=== PATIENT | male | born 1955 | race Caucasian/White ===

== ENCOUNTER 2019-10-19 10:36 | Emergency (ER) | payer OTHER ==
[~2019-10-19 10:36] MED LIST: ATROPINE SULFATE INJ 1 MG/10 ML DISP.SYRIN IV ONE; CALCIUM GLUCONATE 1000 MG/10 ML INJ IV ONE; EPINEPHRINE INJ 1 MG/10 ML DISP.SYRIN ONE; NOREPINEPHRINE BITARTRATE INJ/PF 4 MG/4 ML SDV IV ONE; SODIUM BICARBONATE 8.4% INJ 50 MEQ/50 ML DISP.SYRIN ONE
[2019-10-19] MEDS ORDERED: MIDAZOLAM HCL 50 MG/100 ML RTUINJ IV PRN (10:42)
[2019-10-19] MEDS ORDERED: VECURONIUM BROMIDE INJ 10 MG VIAL IV ONE ×4 (10:43→12:12)
[2019-10-19] MEDS ORDERED: NALOXONE HCL INJ 2 MG/2 ML DISP.SYRIN ONE (10:44)
[2019-10-19] MEDS ORDERED: KETAMINE HCL INJ 500 MG/10 ML VIAL ONE (10:54)
[2019-10-19 11:11] LABS: PARTIAL THROMBOPLASTIN TIME 43.9 SEC (23.5-35.8); PROTHROMBIN TIME 15.3 SEC (11.4-15.4)
[2019-10-19 11:16] LABS: HEMATOCRIT 47.2 % (37.9-51.0); HEMOGLOBIN 14.3 g/dL (13.5-17.0); MEAN CORPUSCULAR HEMOGLOBIN 30.1 pg (27.0-33.4); MEAN CORPUSCULAR HGB CONC 30.4 g/dL (32.0-36.0); MEAN CORPUSCULAR VOLUME 99 fl (80-97); PLATELET COUNT 155 10^3/uL (150-450); RED BLOOD COUNT 4.76 10^6/uL (4.35-5.55); RED CELL DISTRIBUTION WIDTH 15.6 % (11.5-14.0); WHITE BLOOD COUNT 12.3 10^3/uL (4.0-10.5)
[2019-10-19 11:25] LABS: VENOUS BLOOD BASE EXCESS -21.1 mmol/L; VENOUS BLOOD HCO3 16.8 mmol/L (20-32)
[2019-10-19] MEDS ORDERED: INSULIN REG, HUMAN 100 UNIT/ML 3 ML VIAL (PYX) ONE (11:31)
[2019-10-19 11:32] LABS: ALBUMIN 3.6 g/dL (3.5-5.0); ALKALINE PHOSPHATASE 79 U/L (38-126); ASPARTATE AMINO TRANSFERASE 179 U/L (17-59); BILIRUBIN,DIRECT 0.1 mg/dL (0.0-0.4); BILIRUBIN,TOTAL 0.6 mg/dL (0.2-1.3); BLOOD UREA NITROGEN 17 mg/dL (7-20); CALCIUM 9.3 mg/dL (8.4-10.2); POTASSIUM 3.9 mmol/L (3.6-5.0); TOTAL PROTEIN 6.3 g/dL (6.3-8.2)
[2019-10-19 11:33] LABS: VENOUS BLOOD PCO2 122.3 mmHg (35-63); VENOUS BLOOD PH 6.76 (7.30-7.42)
[2019-10-19] MEDS ORDERED: EPINEPHRINE INJ/PF 1 MG/1 ML AMPULE ONE ×3 (11:35→12:47)
[2019-10-19 11:37] LABS: CARBON DIOXIDE 16 mmol/L (22-30); CHLORIDE 99 mmol/L (98-107)
[2019-10-19 11:44] LABS: ANION GAP 25 (5-19); TROPONIN I 0.015 ng/mL
[2019-10-19 11:45] LABS: GLUCOSE 415 mg/dL (75-110)
[2019-10-19 11:46] LABS: ABSOLUTE LYMPHOCYTES# (MANUAL) 7.5 10^3/uL (0.5-4.7); ABSOLUTE MONOCYTES # (MANUAL) 0.7 10^3/uL (0.1-1.4); ANISOCYTOSIS 1+; BAND NEUTROPHILS % (MANUAL) 2 % (3-5); BASOPHILS % (MANUAL) 0 % (0-2); EOSINOPHILS % (MANUAL) 2 % (0-6); LYMPHOCYTES % (MANUAL) 57 % (13-45); MONOCYTES % (MANUAL) 6 % (3-13); SEGMENTED NEUTROPHILS % (MAN) 29 % (42-78); TOTAL CELLS COUNTED 100
[2019-10-19 11:47] LABS: PLATELET COMMENT ADEQUATE
[2019-10-19 12:12] LABS: ARTERIAL BLOOD H2CO3 2.62 mmol/L (1.05-1.35); ARTERIAL BLOOD PO2 99.1 mmHg (80-100); ARTERIAL BLOOD TOTAL CO2 17.7 mmol/L (23-27)
[2019-10-19] MEDS ORDERED: ETOMIDATE INJ/PF 20 MG/10 ML SDV IV ONE ×2 (12:12→12:13)
--- NOTE | 2019-10-19 12:12 | ER Document Report ---
ED General - General Chief Complaint: Cardiac Arrest Stated Complaint: POST CARDIAC Time Seen by Provider: 10/19/19 10:36 Primary Care Provider: KENDELL GRANADO DPM [ACTIVE STAFF] - Follow up as needed Information source: Relative, Emergency Med Personnel Cannot obtain history due to: Intubated Notes: 64-year-old male brought in by EMS for a witnessed arrest at home. Patient apparently got up in the morning and told his mother that he felt like he needed some sugar so she brought him a glass of sweet tea with extra sugar mixed in. Patient was then drinking the sweet tea but then fell to the ground. Mother had already called 911 and the fire department showed up on scene very shortly after he fell to the ground. Fire department found the patient to be apneic and pulseless. They commenced CPR, they did CPR for 5 to 10 minutes and then EMS arrived on the scene, EMS gave 2 mg of epinephrine and obtained return of spontaneous circulation with some spontaneous breathing. They did intubate the patient with the I-gel. They checked a blood glucose and it was "normal". Mother denies any symptoms prior to this morning. TRAVEL OUTSIDE OF THE [place] IN LAST 30 DAYS: No - Related Data Allergies/Adverse Reactions: codeine [Codeine] Allergy (Verified 12/31/14 14:31) Past Medical History - General Information source: Relative, Emergency Med Personnel, [facility] Records Cannot obtain history due to: Intubated - Social History Smoking Status: Current Every Day Smoker Drug Abuse: None Lives with: Parents Family History: CAD - Past Medical History Cardiac Medical History: Reports: Hx Hypertension Denies: Hx Heart Attack Pulmonary Medical History: Denies: Hx Asthma Neurological Medical History: Reports: Hx Cerebrovascular Accident - 10 years ago. Denies: Hx Seizures GI Medical History: Denies: Hx Hepatitis, Hx Hiatal Hernia, Hx Ulcer Infectious Medical History: Denies: Hx Hepatitis Past Surgical History: Denies: Hx Open Heart Surgery, Hx Pacemaker Review of Systems - Review of Systems -: Yes ROS unobtainable due to patient's medical condition Physical Exam - Vital signs Vitals: Resp 18 10/19/19 10:55 - Notes Notes: GENERAL: On arrival patient was intubated, had not received any sedating medication by EMS, was initiating spontaneous respirations but otherwise not moving. HEAD: Normocephalic, atraumatic EYES: Pupils equal, round pinpoint, do not respond to light. ENT: Oral mucosa moist, tongue midline. NECK: Full range of motion, supple, trachea midline. LUNGS: Clear to auscultation bilaterally, initiating own breaths, assisted with bag, not gagging. HEART: Regular rate and rhythm, no murmurs, gallops, rubs. ABDOMEN: Soft, nondistended, bowel sounds absent. 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 No edema, radial and dorsalis pedis pulses 1/4 bilaterally. Slight peripheral cyanosis. NEUROLOGICAL: Unresponsive, GCS 3 T, no corneal reflex, is initiating own b reaths, biceps and patellar DTRs absent bilaterally. SKIN: Initially warm, no abscesses noted, initially no mottling. Patient did become mottled later during ED course. Course - Re-evaluation Re-evalutation: 10/19/19 12:35 Given the multiples times that the patient has gone back into asystolic arrest and the escalating dosage of epinephrine through the drip that we have to use on this patient family has decided to make the patient a DNR particularly considering his severe metabolic acidosis. Patient will be maintained on cur rent supportive care and if he arrests again we will not perform CPR. Preacher has been called. 10/19/19 20:37 This is a late entry. On arrival patient was breathing on his own but otherwise not showing any neurologic function. Igel was in place, replaced with ET tube. Patient did suffer cardiac arrest while we were attempting to intubate the first time. ET tube was successfully passed using a glide scope after ROSC. 10/19/19 20:41 Patient was never stable enough to go for a CT scan of the head. He suffered multiple recurrent cardiac arrests with asystole and occasionally PEA. No justino ckable rhythms. Please see code sheet for doses and frequency of cardiac arrests. Chest x-ray confirms placement of ET tube. CBC shows slight leukocytosis at 12.3 otherwise unremarkable, coags slightly prolonged, initial venous blood gas shows severe respiratory and metabolic acidosis with pH of 6.76, PCO2 of 122.3 and bicarb of 16.8. After patient had been intubated for an hour and a half thi s was repeated and the venous blood gas did not really show any significant improvement, still significantly acidotic with pH of 6.85 and a CO2 of 87.1. Bicarb continued to be low at 15.0, chemistries revealed low CO2 at 16, and anion gap of 25, elevated glucose in the 400s, lactic acid markedly elevated at 14.7, mag elevated at 2.8, calcium normal at 9.3. There is no hyper or hypokalemia. Surprisingly troponin was actually normal at 0.015. Chest X-Ray 10/19/19 10:55 IMPRESSION: 1. No acute cardiopulmonary disease. 2. Esophagogastric and endotracheal tubes are in good position. 3. Gaseous distention of the stomach. Patient was given multiple doses of epinephrine, bedside ultrasound after ROSC revealed good squeeze without tamponade or effusion. No reversible causes were determined. Patient was given some bicarb for the acidosis which did not make a difference. As noted above family did make the patient a DNR at 1235. Patient's heart stopped for the final time at 12:53. 10/19/19 20:43 - Vital Signs Vital signs: Temp Pulse Resp BP Pulse Ox 15 82/64 L 98 10/19/19 12:51 10/19/19 12:51 10/19/19 12:35 - Laboratory Result Diagrams: 10/19/19 10:36 10/19/19 10:36 Laboratory results interpreted by me: 10/19/19 10/19/19 10/19/19 10:36 10:36 10:36 WBC 12.3 H MCV 99 H MCHC 30.4 L RDW 15.6 H Seg Neuts % (Manual) 29 L Band Neutrophils % 2 L Lymphocytes % (Manual) 57 H Abs Lymphs (Manual) 7.5 H APTT 43.9 H Carbonic Acid ABG pH ABG pCO2 ABG HCO3 ABG Total CO2 ABG O2 Saturation VBG pH VBG pCO2 VBG HCO3 Carbon Dioxide 16 L Anion Gap 25 H Glucose 415 H* POC Glucose Lactic Acid Magnesium 2.8 H AST 179 H NT-Pro-B Natriuret Pep 10/19/19 10/19/19 10/19/19 10:36 10:36 10:36 WBC MCV MCHC RDW Seg Neuts % (Manual) Band Neutrophils % Lymphocytes % (Manual) Abs Lymphs (Manual) APTT Carbonic Acid ABG pH ABG pCO2 ABG HCO3 ABG Total CO2 ABG O2 Saturation VBG pH 6.76 L* VBG pCO2 122.3 H* VBG HCO3 16.8 L Carbon Dioxide Anion Gap Glucose POC Glucose Lactic Acid 14.7 H Magnesium AST NT-Pro-B Natriuret Pep 198 H 10/19/19 10/19/19 10/19/19 10:41 11:18 11:29 WBC MCV MCHC RDW Seg Neuts % (Manual) Band Neutrophils % Lymphocytes % (Manual) Abs Lymphs (Manual) APTT Carbonic Acid ABG pH ABG pCO2 ABG HCO3 ABG Total CO2 ABG O2 Saturation VBG pH VBG pCO2 VBG HCO3 Carbon Dioxide Anion Gap Glucose POC Glucose 409 H* 453 H* 325 H Lactic Acid Magnesium AST NT-Pro-B Natriuret Pep 10/19/19 12:01 WBC MCV MCHC RDW Seg Neuts % (Manual) Band Neutrophils % Lymphocytes % (Manual) Abs Lymphs (Manual) APTT Carbonic Acid 2.62 H ABG pH 6.85 L* ABG pCO2 87.1 H* ABG HCO3 15.0 L ABG Total CO2 17.7 L ABG O2 Saturation 90.0 L VBG pH VBG pCO2 VBG HCO3 Carbon Dioxide Anion Gap Glucose POC Glucose Lactic Acid Magnesium AST NT-Pro-B Natriuret Pep Procedures - Intubation Orotracheal Airway evaluation: Abnormal 3-3-2 rule, Large tongue, Obese Mallampati Classification: Class 3 Medications: Etomidate, Vecuronium Intubation method: Orotracheal Blade type: Ameena Blade size: 4 Equipment used: Glidescope ETT size: 8.0 ETT secured at: Teeth ETT secured at (cm): 22 Breath Sounds after Intubation: Equal End tidal CO2 confirmed: Yes Ventilator settings: SIMV Tidal volume: 450 FiO2: 100 Respirations: 16 Pressure support: 10 PEEP: 5 Post Intubation Xray: Yes Intubation Complications: Oral-unsuccessful attempt, Other - cardiac arrest during the unsuccessful attempt at intubation using direct laryngoscopy. Critical Care Note - Critical Care Note Total time excluding time spent on procedures (mins): 115 Comments: From the time the patient arrived I was involved in the patient's care non-stop including updating the family, calling consultants, charting on this patient. I did not see any other patients during this time. This amount of time excludes separately billable procedures such as intubation or CPR. Discharge - Discharge Clinical Impression: Cardiac arrest with pulseless electrical activity, Lactic acidosis Type 2 diabetes mellitus, with long-term current use of insulin Qualifiers: Diabetes mellitus complication status: with circulatory complication Diabetes mellitus complication detail: with peripheral angiopathy without gangrene Qualified Code(s): E11.51 - Type 2 diabetes mellitus with diabetic peripheral angiopathy without gangrene Disposition: Referrals: KENDELL GRANADO DPM [ACTIVE STAFF] - Follow up as needed
[2019-10-19 12:13] LABS: ARTERIAL BLOOD FIO2 100%
[2019-10-19 12:15] LABS: ARTERIAL BLOOD PCO2 87.1 mmHg (35-45); ARTERIAL BLOOD PH 6.85 (7.35-7.45)
--- NOTE | 2019-10-19 12:19 | RADIOLOGY REPORT (SQ) ---
EXAM DESCRIPTION: CHEST SINGLE VIEW COMPLETED DATE/TIME: 10/19/2019 10:34 am REASON FOR STUDY: post arrest, intubating COMPARISON: None. EXAM PARAMETERS: NUMBER OF VIEWS: One view. TECHNIQUE: Single frontal radiographic view of the chest acquired. RADIATION DOSE: NA LIMITATIONS: None. FINDINGS: LUNGS AND PLEURA: No opacities, masses or pneumothorax. No pleural effusion. MEDIASTINUM AND HILAR STRUCTURES: No masses. Contour normal. HEART AND VASCULAR STRUCTURES: Heart normal in size. Normal vasculature. BONES: No acute findings. HARDWARE: Esophagogastric tube tip and side-hole are below the GE junction. Endotracheal tube tip is approximately 4 cm above the vinay. OTHER: There is gaseous distention of the stomach. IMPRESSION: 1. No acute cardiopulmonary disease. 2. Esophagogastric and endotracheal tubes are in good position. 3. Gaseous distention of the stomach. TECHNICAL DOCUMENTATION: JOB ID: [id number] [employer]- All Rights Reserved Reading location - IP/workstation name: [email or web address]
[2019-10-19 13:20] VITALS: BP 82/64
--- NOTE | 2019-10-19 15:08 | EKG REPORT ---
SEVERITY:- ABNORMAL ECG - ECTOPIC ATRIAL TACHYCARDIA RBBB AND LPFB : Confirmed by: Viktor Luna MD 19-Oct-2019 15:08:01
== END 2019-10-19 12:53 | disposition expired ==
LOC: ER 10:36
DX: I46.9 Cardiac arrest, cause unspecified (principal); E87.2 Acidosis; E11.51 Type 2 diabetes mellitus with diabetic peripheral angiopathy without gangrene; F17.200 Nicotine dependence, unspecified, uncomplicated; I10 Essential (primary) hypertension; Z88.6 Allergy status to analgesic agent; Z86.73 Personal history of transient ischemic attack (TIA), and cerebral infarction without residual deficits; Z89.511 Acquired absence of right leg below knee; Z66 Do not resuscitate
CPT/HCPCS: 31500; 93005; 99291; 99292; 36415; 87040; 82962; 82803 ×2; 83605; 83735; 85025; 85610; 85730; 80053; 84484; 83880; 71045; 94660; 93010; A4315; J0461; J0610; J0171; J3490 ×5; J1815